=== PATIENT | male | born 1940 | race Caucasian/White ===

== ENCOUNTER 2017-01-02 11:00 | Outpatient (CLI) | payer MEDICARE, BC ==
--- NOTE | 2017-01-02 12:13 | RAD ---
PA AND LATERAL VIEWS OF CHEST: Date: 01/02/17 HISTORY: Fever. COPD. FINDINGS: Comparison made with exam of 04/15/15. The heart size is normal. The aorta is tortuous. There are changes of COPD with stable chronic lobo es. No lobar consolidation, pneumothorax, or pleural effusions are seen. IMPRESSION: COPD. No acute process. POS: [facility]
== END 2017-01-02 11:01 | disposition home or self-care (01) ==
LOC: NAV RAD 11:00
PROVIDERS: ATTEND Internal Medicine
DX: J44.9 Chronic obstructive pulmonary disease, unspecified (principal); R50.9 Fever, unspecified
CPT/HCPCS: 71020

== ENCOUNTER 2017-01-07 08:40 | Outpatient (CLI) | payer MEDICARE, BC ==
[2017-01-07 12:35] LABS: #Basophils 0.1 thou/uL (0.0-0.2); #Eosinphils 0.6 thou/uL (0.0-0.7); #Lymphocytes 2.2 thou/uL (1.20-3.40); #Monocytes 0.5 thou/uL (0.11-0.59); #Neutrophils 4.8 thou/uL (1.40-6.50); %Eosinophils 7.4 % (0.0-10.0); %Lymphocytes 26.6 % (21.0-51.0); %Monocytes 6.2 % (0.0-10.0); Hematocrit 44.5 % (42.0-52.0); Mean Platelet Volume 4.5 fL (7.4-10.4); Red Blood Cell (RBC) Count 5.03 mill/uL (4.70-6.10); White Blood Cell (WBC) Count 8.2 thou/uL (4.8-10.8)
[2017-01-07 12:59] LABS: ALT (SGPT) 9 U/L (0-55); AST (SGOT) 12 U/L (5-34); Alkaline Phosphatase 76 U/L (40-150); Anion Gap 18 mmol/L (10-20); BUN (Urea Nitrogen) 15 mg/dL (8.4-25.7); Bilirubin, Total 0.6 mg/dL (0.2-1.2); Calc. Creatinine Clearance 0 mL/min (70-130); Calcium 9.2 mg/dL (7.8-10.44); Carbon Dioxide 25 mmol/L (23-31); Chloride 99 mmol/L (98-107); Estimated GFR-MDRD 68; Globulin 2.4 g/dL (2.4-3.5); LDL Cholesterol, Calculated 112 mg/dL; Protein, Total 6.3 g/dL (5.8-8.1)
== END 2017-01-07 08:41 ==
LOC: NAVSJIPCSP 08:40
PROVIDERS: ATTEND Internal Medicine
DX: E78.5 Hyperlipidemia, unspecified (principal); I11.9 Hypertensive heart disease without heart failure; Z79.899 Other long term (current) drug therapy
CPT/HCPCS: 80053; 80061; 85025

== ENCOUNTER 2017-04-10 09:17 | Outpatient (CLI) | payer MEDICARE, BC ==
[2017-04-10 12:44] LABS: Cardiac Risk 4.3 (Less than 4.5)
== END 2017-04-10 09:18 | disposition home or self-care (01) ==
LOC: NAVSJIPCSP 09:17
PROVIDERS: ATTEND Internal Medicine
DX: E78.5 Hyperlipidemia, unspecified (principal); Z79.899 Other long term (current) drug therapy
CPT/HCPCS: 36415; 80061

== ENCOUNTER 2017-07-11 07:27 | Outpatient (CLI) | payer MEDICARE, BC | END 2017-07-11 07:28 | disposition home or self-care (01) | LOC: NAVSJIPCSP 07:27 → NAV LABSP 07:28 | PROVIDERS: ATTEND Internal Medicine | DX: A09 Infectious gastroenteritis and colitis, unspecified (principal) | CPT/HCPCS: 87324; 87449 ==

== ENCOUNTER 2017-08-12 09:08 | Outpatient (CLI) | payer MEDICARE, BC | END 2017-08-12 09:09 | disposition home or self-care (01) | LOC: NAVSJIPCSP 09:08 | PROVIDERS: ATTEND Internal Medicine | DX: A09 Infectious gastroenteritis and colitis, unspecified (principal) | CPT/HCPCS: 87324; 87449 ==

== ENCOUNTER 2017-12-03 09:43 | Outpatient (CLI) | payer MEDICARE, BC ==
--- NOTE | 2017-12-03 10:36 | RAD ---
RADIOGRAPHIC CHEST TWO VIEW SERIES: Comparison: 01-02-17 Indication: COPD. Fever. FINDINGS: Lungs are hyperinflated with interstitial prominence bilaterally, grossly stable. There is slight cas nting of the costophrenic sulci which could relate to pleural thickening versus minimal pleural fluid . Cardiac silhouette is stable in size, within normal limits. There is mild vascular calcification an d scattered osseous degenerative change. IMPRESSION: Grossly stable chest with evidence of COPD. POS: [facility]
[2017-12-03 11:14] LABS: #Basophils 0.1 thou/uL (0.0-0.2); #Eosinphils 0.6 thou/uL (0.0-0.7); #Lymphocytes 1.4 thou/uL (1.20-3.40); #Monocytes 0.7 thou/uL (0.11-0.59); #Neutrophils 5.8 thou/uL (1.40-6.50); %Basophils 1.4 % (0.0-1.0); %Eosinophils 7.2 % (0.0-10.0); %Lymphocytes 15.7 % (21.0-51.0); %Monocytes 8.2 % (0.0-10.0); %Neutrophils 67.5 % (42.0-75.0); Hemoglobin 12.7 g/dL (14.0-18.0); Mean Corpuscular HGB CONC 32.4 g/dL (32.0-36.0); Mean Corpuscular Hemoglobin 29.9 pg (27.0-31.0); Mean Corpuscular Volume 92.3 fl (80.0-94.0); Mean Platelet Volume 5.5 fL (7.4-10.4); Platelet Count 160 thou/uL (130-400); RBC Distribution Width 13.3 % (11.5-14.5); Red Blood Cell (RBC) Count 4.24 mill/uL (4.70-6.10); White Blood Cell (WBC) Count 8.6 thou/uL (4.8-10.8)
== END 2017-12-03 09:44 | disposition home or self-care (01) ==
LOC: NAV RAD 09:43
PROVIDERS: ATTEND Internal Medicine
DX: J44.9 Chronic obstructive pulmonary disease, unspecified (principal); R50.9 Fever, unspecified
CPT/HCPCS: 36415; 71046; 85025; 87040

== ENCOUNTER 2019-01-04 12:31 | Outpatient (CLI) | payer MEDICARE, BC ==
--- NOTE | 2019-01-04 13:34 | RAD ---
CHEST TWO VIEWS: History: COPD. Increasing dyspnea on exertion. Comparison: 12-03-17 FINDINGS: Heart size and mediastinum are within normal limits. Lungs are hyperexpanded consistent with an eleme nt of COPD. Changes appear stable. IMPRESSION: Stable COPD changes. POS: [facility]
== END 2019-01-04 12:32 | disposition home or self-care (01) ==
LOC: NAV RAD 12:31
PROVIDERS: ATTEND Internal Medicine
DX: J44.9 Chronic obstructive pulmonary disease, unspecified (principal); R06.00 Dyspnea, unspecified
CPT/HCPCS: 71046

== ENCOUNTER 2019-02-17 08:43 | Outpatient (CLI) | payer MEDICARE, BC ==
[2019-02-17] MEDS ORDERED: Iopamidol 370 76% 100 ML VIAL ONE (09:00)
--- NOTE | 2019-02-17 12:07 | CT ---
CT CHEST WITH CONTRAST: HISTORY: COPD. Acute cough x1 month. The patient has a history of lymphoma, status post treatment. COMPARISON: 03/12/2015 and 11/08/2014 FINDINGS: There is a hypodense nodule emanating from the lower pole left thyroid lobe, measuring 1.7 x 1.5 cm. There are nonspecific prevascular lymph nodes. One of the lymph nodes appears to be at the upper li mits of normal. Given the patient's history of lymphoma, a consultation with oncology is recommended . This lymph node measures 1.7 x 0.8 cm. Additional mediastinal lymphadenopathy and hilar lymphaden opathy are not appreciated. Heart size is within normal limits. No pericardial effusion. There are coronary artery calcifications. The thoracic and abdominal aorta have an overall normal caliber. N o periaortic fat stranding. Hypodensities in the liver and spleen are noted and are incompletely evaluated. CT evidence of cholelithiasis, incompletely evaluated. There are extensive emphysematous changes in the lung parenchyma. There is no suspicious mass or nod ule in either upper lobe or middle lobe. There is a 0.7 mm nodule in the right lower lobe. There is small, focal nodularity of the right minor fissure, likely representing a subpleural lymph node. There is a 5 mm nodule in the right upper lobe. There are two separate 4 mm nodules in the superior segment of the right lower lobe. There is a 4 mm nodule in the left lower lobe. There are 2 to 3 mm nodules also noted in the left lower lobe. There is an irregular opacity in the left lower lobe, me asuring 6 mm. There is a 5 mm nodule in the left upper lobe. No lytic or blastic lesions in the osseous structures. The previously noted opacity in the left upper lobe has resolved. IMPRESSION: 1. Multiple nodules in the lung parenchyma, as described above. The largest nodule is in the right lower lobe, measuring 7 mm, unchanged. Previously, this nodule also measured 7 mm. Additional nodul es are in the 4 to 6 mm range. 2. Stable emphysematous change. 3. Nonspecific anterior-posterior window lymph node, as described above. If there is concern, consi gabriel PET imaging, given the patient's history of lymphoma. POS: [facility]
== END 2019-02-17 08:44 | disposition home or self-care (01) ==
LOC: NAV CT 08:43
PROVIDERS: ATTEND Internal Medicine
DX: Z01.812 Encounter for preprocedural laboratory examination (principal); J44.9 Chronic obstructive pulmonary disease, unspecified; R05 Cough; R91.8 Other nonspecific abnormal finding of lung field
CPT/HCPCS: 36415; 71260; 82565; Q9967